=== PATIENT | male | born 1980 | race Caucasian/White ===

== ENCOUNTER 2017-02-13 10:41 | Emergency (ER) | payer MEDICAID ==
[~2017-02-13] VITALS: Ht 182.9 cm; Wt 83.9 kg
[~2017-02-13 10:41] MED LIST: BG MC; ECO81 PO; GEMFIBROZIL600 MG PO; HYDROGEL1 GEL; KEFLEX500 MG PO; LAC PO; LANTUS SOLOS100 U/M1 SQ; METFORMIN HCL850 MG PO; PRI20 PO; ZES10 PO; ZOC10 PO
[2017-02-13 13:55] LABS: BASOPHIL % 0.5 % (0-2); PLATELET COUNT 337 x10^3mcL (130-400); RED CELL DISTRIBUTION WIDTH 14.4 % (11.5-14.5)
[2017-02-13 14:18] LABS: BILIRUBIN TOTAL 0.2 mg/dL (0.20-1.00); CARBON DIOXIDE 27.6 mmol/L (21-32); CREATININE SERUM 2.3 mg/dL (0.7-1.3); TOTAL PROTEIN, SERUM 6.6 g/dL (6.4-8.2)
[2017-02-13 14:34] LABS: ALBUMIN 1.6 g/dL (3.4-5.0)
[2017-02-13 15:10] VITALS: BP 135/99
== END 2017-02-13 15:10 | disposition home or self-care (01) ==
LOC: ED 10:41
PROVIDERS: Emergency Medicine
DX: J40 Bronchitis, not specified as acute or chronic (principal); R07.89 Other chest pain; E11.65 Type 2 diabetes mellitus with hyperglycemia; R03.0 Elevated blood-pressure reading, without diagnosis of hypertension; N28.9 Disorder of kidney and ureter, unspecified; D64.9 Anemia, unspecified; E78.5 Hyperlipidemia, unspecified; Z79.4 Long term (current) use of insulin
CPT/HCPCS: J1815; J7030